=== PATIENT | male | born 1965 | race Caucasian/White ===

== ENCOUNTER 2023-01-04 05:06 | Day surgery (SDC) | payer OTHER ==
[2023-01-03 14:22] VITALS: BMI 18.8
[2023-01-04 10:39] VITALS: BP 128/95; PULSE 78; RESP 20; TEMP 97.1
[2023-01-04 11:19] LABS: POTASSIUM 4.8 mmol/L (3.5-5.1)
[2023-01-04 11:21] LABS: CALCIUM 8.9 mg/dL (8.5-10.1)
[2023-01-04 11:22] LABS: BLOOD UREA NITROGEN 11.6 mg/dL (7-18)
[2023-01-04 11:25] LABS: CREATININE 0.9 mg/dL (0.55-1.3)
== END 2023-01-04 15:00 | disposition home or self-care (01) ==
LOC: JASU-SURG 05:06
PROVIDERS: ATTEND Urology
DX: Z53.8 Procedure and treatment not carried out for other reasons (principal)
CPT/HCPCS: 36415; 80048; 82962